=== PATIENT | male | born 1965 | race Caucasian/White ===

== ENCOUNTER 2025-03-27 12:01 | Day surgery (SDC) | payer BC ==
[2025-03-27] MEDS ORDERED: Sodium Chloride 0.9(Preservative Free) 10 ML IJ ONE (12:02)
[2025-03-27] MEDS ORDERED: LIDOCAINE HCL 1% 50 MG/5 ML VL IJ ONE (12:02)
[2025-03-27] MEDS ORDERED: propofoL IV ONE ×2 (15:29→15:38)
[2025-03-27] MEDS ORDERED: MORPHINE SULFATE 4 MG INJ ONE (15:56)
--- NOTE | 2025-03-27 16:32 | XRAY ---
48 seconds of fluoroscopy was used in surgery for a left piriformis injection.
--- NOTE | 2025-03-27 16:33 | XRAY ---
31 seconds of fluoroscopy was used in surgery for a left L4-S1 transforaminal RAHEEM.
--- NOTE | 2025-03-27 16:42 | XRAY ---
Indication: Left piriformis injection. Intraoperative fluoroscopy provided for 48 seconds. Single digital spot image submitted for interpretation demonstrates posterior needle tip projecting over left piriformis. Small amount of contrast injected for needle tip placement. Correlate with intraoperative findings/report.
--- NOTE | 2025-03-27 16:42 | XRAY ---
Indication: Left L4-S1 transforaminal RAHEEM. Intraoperative fluoroscopy provided for 31 seconds. 4 digital spot image submitted for interpretation demonstrates posterior needle tips projecting over expected left L4 and L5 nerve roots. Small amount of contrast injected for needle tip placement. Correlate with intraoperative findings/report. Incidental left L5-S1 fusion hardware.
[2025-03-27] MEDS ORDERED: Lactated Ringers 1,000 ML IV ONE (17:06)
== END 2025-03-27 16:20 | disposition home or self-care (01) ==
LOC: SDC-PAIN 12:01
PROVIDERS: ATTEND Psychiatry & Neurology Pain Medicine
DX: M54.16 Radiculopathy, lumbar region (principal); M79.18 Myalgia, other site